=== PATIENT | female | born 1965 | race African-American/Black ===

== ENCOUNTER 2023-12-03 09:59 | Emergency (ER) | payer BC, OTHER ==
[~2023-12-03] VITALS: Ht 160 cm; Wt 75.0 kg
[~2023-12-03 09:59] MED LIST: IBUP-2028 MT
[2023-12-03 10:01] VITALS: O2SAT 99
[2023-12-03 10:31] LABS: BASOPHILS % 0.7 % (0.0-2.0); EOSINOPHILS % 0.6 % (0.0-5.0); HEMATOCRIT. 39.7 % (36.0-48.0); HEMOGLOBIN. 12.8 g/dL (12.0-16.0); LYMPHOCYTES % 41.4 % (20.0-50.0); MEAN CORPUSCULAR HGB CONC 32.3 g/dL (31.0-37.0); MEAN CORPUSCULAR VOLUME 83.5 fL (81.0-99.0); MEAN PLATELET VOLUME 7.5 fl (7.4-10.4); NEUTROPHILS % 53.3 % (40.0-76.0); PLATELET 283 x1000/uL (130-400); RED BLOOD CELL COUNT 4.76 mill/uL (4.2-5.4); RED CELL DISTRIBUTION WIDTH 13.8 % (11.6-14.6); WHITE BLOOD COUNT 4.7 x1000/uL (4.5-11.0)
[2023-12-03 10:36] LABS: CHLORIDE 109 mEq/L (98-107); POTASSIUM 4.2 mEq/L (3.5-5.1); SODIUM 144 mEq/L (136-145)
[2023-12-03 10:37] LABS: CALCIUM 10.1 mg/dL (8.7-10.4); CARBON DIOXIDE 28 mEq/L (21-32)
[2023-12-03 10:42] LABS: CREATININE 0.9 mg/dL (0.6-1.0); GLUCOSE 96 mg/dL (70-105); UREA NITROGEN BLOOD 7 mg/dL (9-23)
[2023-12-03 10:50] LABS: TROPONIN I HIGH SENSITIVITY < 4 ng/L (3.0-34)
[2023-12-03 11:08] LABS: CLARITY URINE CLEAR (CLEAR); COLOR URINE YELLOW (YELLOW); GLUCOSE URINE NEGATIVE (NEGATIVE); KETONES URINE NEGATIVE (NEGATIVE); LEUKOCYTE ESTERASE URINE NEGATIVE (NEGATIVE); NITRITE URINE NEGATIVE (NEGATIVE); OCCULT BLOOD URINE NEGATIVE (NEGATIVE); PH URINE 6.5 (4.5-8.0); PROTEIN URINE NEGATIVE (NEGATIVE); SPECIFIC GRAVITY URINE 1.009 (1.005-1.030); UROBILINOGEN URINE 0.2 E.U./dL (0.2-1.0)
[2023-12-03 11:50] VITALS: BP 152/98; PULSE 87; RESP 18; TEMP 36.83628; O2SAT 100
== END 2023-12-03 12:07 | disposition home or self-care (01) ==
LOC: ER 09:59
DX: J98.11 Atelectasis (principal); I10 Essential (primary) hypertension
CPT/HCPCS: 36415; 71045; 80048; 81003; 83880; 84484; 85025; 93005; 99285